=== PATIENT | male | born 1965 | race Two or more races ===

== ENCOUNTER 2016-06-14 07:33 | Day surgery (SDC) | payer OTHER ==
[~2016-06-14 07:33] MED LIST: FENTANYL 100 MCG/2 ML VIAL ONE; IV START KIT ONE; LACTATED RINGERS 1,000 ML ONE; PROPOFOL 40 ML IV ONE
[2016-06-14] MEDS ORDERED: LACTATED RINGERS 1,000 ML IV SCH (09:15)
== END 2016-06-14 09:40 | disposition home or self-care (01) ==
LOC: SDC 07:33
PROVIDERS: ATTEND Surgery
PROC: 0DJD8ZZ Inspection of Lower Intestinal Tract, Via Natural or Artificial Opening Endoscopic (ICD-10-PCS; principal; 2016-06-14)
DX: Z12.11 Encounter for screening for malignant neoplasm of colon (principal); I10 Essential (primary) hypertension; K21.9 Gastro-esophageal reflux disease without esophagitis
CPT/HCPCS: 45378; J3010; J7120